=== PATIENT | female | born 1990 | race African-American/Black ===

== ENCOUNTER 2022-02-13 18:36 | Emergency (ER) ==
[~2022-02-13] VITALS: Ht 157.5 cm; Wt 72.6 kg
[2022-02-13] MEDS ORDERED: IBUPROFEN 400 MG TAB PO ONE (19:00)
[2022-02-13] MEDS ORDERED: ACETAMINOPHEN 325 MG TAB PO ONE (20:00)
== END 2022-02-13 21:10 | disposition home or self-care (01) ==
LOC: ER 18:47
DX: R50.9 Fever, unspecified (principal); J03.90 Acute tonsillitis, unspecified; Z20.822 Contact with and (suspected) exposure to COVID-19
CPT/HCPCS: 83518; 87070; 99283; U0002